=== PATIENT | female | born 1985 | race African-American/Black ===

== ENCOUNTER 2016-03-06 18:11 | Emergency (ER) | payer MEDICARE, MEDICAID ==
[~2016-03-06] VITALS: Ht 172.7 cm; Wt 103.0 kg
[~2016-03-06 18:11] MED LIST: NAPR500 PO; ZITH250T PO
[2016-03-06 18:14] VITALS: BP 111/73; PULSE 107; RESP 16; TEMP 99.3; O2SAT 98
[2016-03-06] MEDS ORDERED: CLIN1CAP6 PO (18:30)
[2016-03-06] MEDS ORDERED: PERC5TAB12 PO (18:30)
--- NOTE | 2016-03-06 18:54 | PD ---
HPI Chief Complaint: Wound/Suture/Staple Re-Check Time Seen by Provider: 18:44 Travel History International Travel<30 days: No Contact w/Intl Traveler<30days: No Traveled to known affect area: No History of Present Illness HPI The patient was seen and examined in the presence of the nurse. This patient had plastic surgery in [place] 2 weeks ago. She had a tummy tuck. She followed up with the plastic surgeon after the operation and the right side groin drain was removed. According to the patient, the surgeon told her to remove the left groin drain when it collected less than 25 cc per 24 hours. She says that happened on Saturday and she had her friend cut the suture and take to drain out. She reports that she feels like there may be some fluid collecting in the left lower abdomen. She does not have fever. No dehiscence or drainage. No fluid has come out of the drain hole. She says she called the surgeon this morning and was advised to go to the emergency room for evaluation. Duration 2 days PFSH Past Medical History Cancer: Yes (HODGKINS LYMPHOMA) Cardiomyopathy: Yes (POST CARDIOMYOPATHY) Cardiovascular Problems: Yes (CHF) Congestive Heart Failure: Yes (HAD IN PAST DURING HER ) COPD: Yes Diabetes: No Diminished Hearing: No Endocrine: Yes Gastrointestinal Disorders: Yes (REFLUX) Genitourinary: No Hepatitis: No Hiatal Hernia: No Hypertension: Yes (DURING ) Immune Disorder: No Medical other: No Musculoskeletal: No Neurologic: No Psychiatric: No Reproductive: No Respiratory: No Radiation Therapy: Yes (08/2007- STEM CELL TRANSPLANT) Thyroid Disease: Yes Tetanus Vaccination: Unknown ?: Not : 2 Para: 3 Tubal Ligation: Yes Past Surgical History Abdominal Surgery: Yes (CHOLY, GASTRIC SLEEVE (04/2015)) AICD: No Body Medical Devices: FAKE TOOTH Cardiac Surgery: No Section: Yes Cholecystectomy: Yes Ear Surgery: No Endocrine Surgery: No Eye Surgery: No Genitourinary Surgery: No Gynecologic Surgery: Yes (C SECTION) Joint Replacement: No Neurologic Surgery: No Oral Surgery: No Pacemaker: No Thoracic Surgery: Yes (IMPLANTED PORT, REMOVAL OF PORT) Other Surgery: Yes (TUMMY TUCK, STEM CELL TRANSPLANT) Social History Alcohol Use: Yes (1-2 VODKA DRINKS/WEEK; LAST DRINK "2 WEEKS AGO") Tobacco Use: No (QUIT 2002) Substance Use: No Allergies-Medications (Allergen,Severity, Reaction): Coded Allergies: Amoxicillin (Verified Allergy, Severe, RASH, 03/06/16) Reported Meds & Prescriptions Reported Meds & Active Scripts Active Reported Percocet (Oxycodone-Acetaminophen) 5-325 mg Tab 1 Tab PO Q6H PRN Clindamycin (Clindamycin HCl) 300 Mg Cap 300 Mg PO Q6H Review of Systems General / Constitutional: No: Fever HENT: No: Headaches Cardiovascular: No: Chest Pain or Discomfort Respiratory: No: Cough Physical Exam Narrative GASTROINTESTINAL: Abdomen soft, non-tender, nondistended. Positive bowel sounds. No hepato-splenomegaly, or palpable masses. No guarding. I don't see any objective asymmetry between the left and right side. Incision across the lower abdomen shows no dehiscence or drainage. There is no redness or warmth around it. She has a tiny drain hole in the left groin without any active drainage. SKIN: Inspection shows no rash or ulcers. Palpation shows no induration or nodules. Data Data Last Documented VS Vital Signs Date Time Temp Pulse Resp B/P Pulse Ox O2 Delivery O2 Flow Rate FiO2 03/06/16 18:14 99.3 107 16 111/73 98 MDM Medical Decision Making Medical Screen Exam Complete: Yes Emergency Medical Condition: Yes Medical Record Reviewed: Yes Differential Diagnosis Seroma, wound dehiscence, fluid collection Narrative Course I have reviewed the patient's electronic medical record. Patient has no objective findings of emergent condition. She has a soft benign nontender abdomen. I don't sense any fluid collection. There is no edema of the abdominal wall. There is no sign of wound infection or dehiscence. I don't think the patient needs emergent imaging to look for fluid collection based on this. I recommend she follow up with her plastic surgeon. I realize that is all worried as they are 4 hours away in [place]. She should call them tomorrow morning and maybe he can suggest a colleague closer that could reevaluate her or he may want to reevaluate her regardless of the drive Diagnosis Primary Impression: Abdominal swelling, LLQ Additional Instructions: Call plastic surgeon in the morning and get their recommendation for follow-up Med/Other Pt SpecificInfo: Other Disposition: 01 DISCHARGE HOME Condition: Stable Jono Pan MD Mar 06, 2016 18:54
== END 2016-03-06 19:13 | disposition home or self-care (01) ==
LOC: PHED 18:11
DX: R19.04 Left lower quadrant abdominal swelling, mass and lump (principal); Z98.890 Other specified postprocedural states; Z85.71 Personal history of Hodgkin lymphoma; I42.9 Cardiomyopathy, unspecified; I50.9 Heart failure, unspecified; J44.9 Chronic obstructive pulmonary disease, unspecified
CPT/HCPCS: 99282

== ENCOUNTER 2017-02-19 16:53 | Emergency (ER) | payer SELFPAY ==
[~2017-02-19] VITALS: Ht 172.7 cm; Wt 106.0 kg
[~2017-02-19 16:53] MED LIST changes: +CLIN300C5 PO; -NAPR500 PO; +PERC5TAB12 PO; -ZITH250T PO
[2017-02-19 16:56] VITALS: BP 121/82; PULSE 93; RESP 18; TEMP 98.3; O2SAT 97
--- NOTE | 2017-02-19 17:50 | RADRPT ---
EXAM DATE/TIME: 02/19/2017 17:29 [facility] COMPARISON: CHEST SINGLE AP, October 22, 2014, 22:04. INDICATIONS : Cough for 1 week. Left side rib pain since yesterday. Chest pain today. MEDICAL HISTORY : Congestive heart failure. Hodgkins Lymphoma SURGICAL HISTORY : section. Gastric sleeve. Stem cell transplant. ENCOUNTER: Initial ACUITY: 1 week PAIN SCORE: 5/10 LOCATION: Right chest FINDINGS: A single view of the chest demonstrates the lungs to be symmetrically aerated without evidence of mas s, infiltrate or effusion. The cardiomediastinal contours are unremarkable. Osseous structures are intact. CONCLUSION: 1. No acute cardiopulmonary disease. Hans Willis MD on February 19, 2017 at 17:48 Board Certified Radiologist. This report was verified electronically.
[2017-02-19] MEDS ORDERED: BENZ100 PO (18:04)
[2017-02-19] MEDS ORDERED: AZIT250T3 PO (18:04)
--- NOTE | 2017-02-19 18:05 | PD ---
HPI Chief Complaint: Cold / Flu Symptoms Time Seen by Provider: 17:00 Travel History International Travel<30 days: No Contact w/Intl Traveler<30days: No Traveled to known affect area: No History of Present Illness HPI 31 -year-old female here with cough, nasal congestion, sore throat 1 week. She now has left rib pain when coughing. The pain is reproducible. Denies fever or chills. Symptoms severity moderate. Denies chest pain, shortness breath, abdominal pain, nausea or vomiting. PFSH Past Medical History Cancer: Yes (HODGKINS LYMPHOMA) Cardiomyopathy: Yes (POST CARDIOMYOPATHY) Cardiovascular Problems: Yes (CHF) Chemotherapy: Yes (chemo in 2011 ) Congestive Heart Failure: Yes (HAD IN PAST DURING HER ) COPD: Yes Diabetes: No Diminished Hearing: No Endocrine: Yes Gastrointestinal Disorders: Yes (REFLUX) Genitourinary: No Hepatitis: No Hiatal Hernia: No Hypertension: Yes (DURING ) Immune Disorder: No Musculoskeletal: No Neurologic: No Psychiatric: No Reproductive: No Respiratory: No Radiation Therapy: Yes (08/2007- STEM CELL TRANSPLANT) Thyroid Disease: Yes Tetanus Vaccination: > 5 Years Influenza Vaccination: No ?: Not LMP: 01/27/2017 : 2 Para: 3 Tubal Ligation: Yes Past Surgical History Abdominal Surgery: Yes (CHOLY, GASTRIC SLEEVE (04/2015)) AICD: No Body Medical Devices: FAKE TOOTH Cardiac Surgery: No Section: Yes Cholecystectomy: Yes Ear Surgery: No Endocrine Surgery: No Eye Surgery: No Genitourinary Surgery: No Gynecologic Surgery: Yes (C SECTION) Joint Replacement: No Neurologic Surgery: No Oral Surgery: No Pacemaker: No Thoracic Surgery: Yes (IMPLANTED PORT, REMOVAL OF PORT) Other Surgery: Yes (TUMMY TUCK, STEM CELL TRANSPLANT) Social History Alcohol Use: Yes (SOCIAL) Tobacco Use: No (QUIT 2002) Substance Use: No Allergies-Medications (Allergen,Severity, Reaction): Coded Allergies: amoxicillin (Unverified Allergy, Severe, RASH, 02/19/17) Reported Meds & Prescriptions Reported Meds & Active Scripts Active No Active Prescriptions or Reported Medications Review of Systems Except as stated in HPI: all other systems reviewed are Neg General / Constitutional: No: Fever Eyes: No: Visual changes HENT: Positive: Sore Throat, Congestion, No: Headaches Cardiovascular: No: Chest Pain or Discomfort Respiratory: Positive: Cough Gastrointestinal: No: Abdominal Pain Genitourinary: No: Dysuria Physical Exam Narrative GENERAL: Alert well-appearing female. SKIN: Warm and dry. HEAD: Normocephalic. EYES: No injection or drainage. NECK: Supple, trachea midline. CARDIOVASCULAR: Regular rate and rhythm without murmurs, gallops, or rubs. RESPIRATORY: Breath sounds equal bilaterally. No accessory muscle use. Rhonchorous sounding cough GASTROINTESTINAL: Abdomen soft, non-tender, nondistended. MUSCULOSKELETAL: No cyanosis, or edema. BACK: Nontender without obvious deformity. No CVA tenderness. Data Data Last Documented VS Vital Signs Date Time Temp Pulse Resp B/P (MAP) Pulse Ox O2 Delivery O2 Flow Rate FiO2 02/19/17 17:04 Room Air 02/19/17 16:56 98.3 93 18 121/82 (95) 97 Orders Orders Chest, Single Ap (02/19/17 ) Influenzae A/B Antigen (02/19/17 17:07) MDM Medical Decision Making Medical Screen Exam Complete: Yes Emergency Medical Condition: Yes Differential Diagnosis Otitis, pneumonia, influenza Narrative Course 31-year-old female with productive cough times one week. She now has left rib pain. Vital signs are stable. Patient is well-appearing. Chest x-ray is negative for pneumonia. Influenza and negative. Patient be treated for bronchitis Diagnosis Primary Impression: Bronchitis Referrals: Primary Care Physician Departure Forms: Tests/Procedures, Work Release Enter return to work date: Feb 22, 2017 Additional Instructions: Take the medication as prescribed. Take [id number] ibuprofen 600-800 mg every 6-8 hours for pain Scripts Benzonatate (Tessalon Perles) 100 Mg Cap 100 MG PO TID Y for COUGH, #12 CAP 0 Refills Prov: Marina Bolton 02/19/17 Azithromycin (Azithromycin) 250 Mg Tab 250 MG PO DIRECTED for Infection, #6 TAB 0 Refills Take 2 tabs (500 mg) on day 1 then 1 tab daily x 4 days. Prov: Marina Bolton 02/19/17 Disposition: 01 DISCHARGE HOME Condition: Stable Marina Bolton Feb 19, 2017 18:05
== END 2017-02-19 18:22 | disposition home or self-care (01) ==
LOC: PHEFT 16:53
DX: J40 Bronchitis, not specified as acute or chronic (principal); J44.9 Chronic obstructive pulmonary disease, unspecified; K21.9 Gastro-esophageal reflux disease without esophagitis
CPT/HCPCS: 71045; 87804; 99284